=== PATIENT | female | born 2000 ===

== ENCOUNTER 2021-06-25 13:25 | Inpatient (IN) | payer OTHER ==
[2021-06-26] MEDS ORDERED: AMPHETAMINE SAL20 MG (08:35)
[2021-06-26] MEDS ORDERED: PEPCID AC20 MG (08:36)
[2021-06-26] MEDS ORDERED: ZOFRAN4 MG (08:36)
[2021-06-30] MEDS ORDERED: DOCUSATE SODIU100 MG PO (10:35)
[2021-06-30] MEDS ORDERED: FAMOTIDINE20 MG/2 M1 PO (10:36)
[2021-06-30] MEDS ORDERED: ONDANSETRON4 MG/2 M1 PO (10:37)
[2021-06-30] MEDS ORDERED: POLY119PG PO (10:38)
[2021-06-30] MEDS ORDERED: MACROBID 100 M100 MG PO (10:38)
[2021-06-30] MEDS ORDERED: ZOFRAN8 MG PO (10:42)
[2021-06-30] MEDS ORDERED: PEPCID AC20 MG PO (10:42)
== END 2021-06-30 11:40 | disposition home or self-care (01) | DRG 833 ==
LOC: OB/GYN 13:25
PROVIDERS: ADMIT Obstetrics & Gynecology; ATTEND Obstetrics & Gynecology
DX: O21.0 Mild hyperemesis gravidarum (principal); O99.281 Endocrine, nutritional and metabolic diseases complicating pregnancy, first trimester; E05.80 Other thyrotoxicosis without thyrotoxic crisis or storm; Z3A.08 8 weeks gestation of pregnancy

== ENCOUNTER 2021-07-02 16:59 | Inpatient (IN) | payer OTHER ==
[~2021-07-02] VITALS: Ht 160 cm; Wt 59.0 kg
[~2021-07-02 16:59] MED LIST: AMPHETAMINE SAL20 MG; DOCUSATE SODIU100 MG PO; FAMOTIDINE20 MG/2 M1 PO; MACROBID 100 M100 MG PO; ONDANSETRON4 MG/2 M1 PO; PEPCID AC20 MG; PEPCID AC20 MG PO; POLY119PG PO; ZOFRAN4 MG; ZOFRAN8 MG PO
--- NOTE | 2021-07-02 17:22 | NUR ---
SE RECIBE PTE ALERTA Y ORIENTADA LA CUAL REFIERE TENER MAS DE 20 VOMITOS EN [facility].
--- NOTE | 2021-07-02 17:41 | NUR ---
MS PEREZ ORIENTA PTE SOBRE TX MEDICO EL CUAL REFIERE ENTENDER.SE LE EXTRAEN MUESTRAS BAJO MEDIDAS ASEPTICAS,SE CANALIZA Y SE ADMINISTRA MEDICAENTO TODD ORDEN MEDICA.SE NOTIFICA SONOGRAMA PENDIENTE.
[2021-07-04] MEDS ORDERED: PEG3350238 GM (08:56)
[2021-07-04] MEDS ORDERED: AMPHETAMINE SAL20 MG (08:56)
== END 2021-07-08 11:00 | disposition home or self-care (01) | DRG 833 ==
LOC: EMR PED 16:59 → ER 17:02 → EMR PED 17:02 → OB/GYN 21:20 → LDR 21:20 → OB/GYN 22:05
PROVIDERS: ADMIT Obstetrics & Gynecology; ATTEND Obstetrics & Gynecology
PROC: BU4CZZZ Ultrasonography of Uterus and Ovaries (ICD-10-PCS; principal; 2021-07-02)
PROC: BW40ZZZ Ultrasonography of Abdomen (ICD-10-PCS; 2021-07-03)
DX: O21.0 Mild hyperemesis gravidarum (principal); O99.281 Endocrine, nutritional and metabolic diseases complicating pregnancy, first trimester; E05.90 Thyrotoxicosis, unspecified without thyrotoxic crisis or storm; Z3A.09 9 weeks gestation of pregnancy